=== PATIENT | male | born 1975 | race African-American/Black ===

== ENCOUNTER → 2021-10-07 | Outpatient (CLI) | payer BC ==
[2021-10-07 15:41] LABS: CLARITY URINE CLEAR (CLEAR); COLOR URINE YELLOW (YELLOW); HEMOGLOBIN. 12.7 g/dL (14.0-18.0); KETONES URINE NEGATIVE (NEGATIVE); LEUKOCYTE ESTERASE URINE TRACE (NEGATIVE); MEAN CORPUSCULAR HEMOGLOBIN 29.4 pg (28.0-32.0); MEAN CORPUSCULAR VOLUME 90.5 fL (80.0-94.0); MEAN PLATELET VOLUME 6.9 fl (7.4-10.4); NITRITE URINE NEGATIVE (NEGATIVE); OCCULT BLOOD URINE NEGATIVE (NEGATIVE); PH URINE 7.5 (4.5-8.0); PLATELET 300 x1000/uL (130-400); PROTEIN URINE NEGATIVE (NEGATIVE); RED BLOOD CELL COUNT 4.31 mill/uL (4.7-6.1); SPECIFIC GRAVITY URINE 1.019 (1.005-1.030); UROBILINOGEN URINE 0.2 E.U./dL (0.2-1.0)
[2021-10-07 16:04] LABS: CHLORIDE 107 mEq/L (98-107)
[2021-10-07 16:07] LABS: PLATELET ESTIMATE NORMAL
[2021-10-07 16:10] LABS: TOTAL IRON BINDING CAPACITY 377 ug/dL (250-450)
[2021-10-07 16:21] LABS: PROSTRATE SPECIFIC AG TOTAL 1.85 ng/mL (0.0-4.0)
== END | disposition home or self-care (01) ==
LOC: LAB 14:37
PROVIDERS: ATTEND Internal Medicine
DX: R53.83 Other fatigue (principal); G40.909 Epilepsy, unspecified, not intractable, without status epilepticus; R53.1 Weakness; E29.1 Testicular hypofunction; D64.9 Anemia, unspecified
CPT/HCPCS: 36415; 80053; 81003; 82728; 83036; 83540; 83550; 84153; 84403; 84443; 85025; 85651; G0103

== ENCOUNTER 2023-04-16 09:24 | Emergency (ER) | payer BC, OTHER ==
[~2023-04-16] VITALS: Ht 193 cm; Wt 71.0 kg
[2023-04-16] MEDS ORDERED: KETOROLAC 30MG/ML VIAL IV STA (09:55)
[2023-04-16] MEDS ORDERED: SODIUM CHLORIDE 0.9% 1,000 ML IV ONE (10:00)
[2023-04-16] MEDS ORDERED: METOCLOPRAMIDE HCL 10MG/2ML VIAL IV ONE (10:00)
[2023-04-16 10:11] LABS: BASOPHILS % 0.7 % (0.0-2.0); HEMATOCRIT. 39.8 % (42.0-52.0); HEMOGLOBIN. 13.2 g/dL (14.0-18.0); LYMPHOCYTES % 22.7 % (20.0-50.0); MEAN CORPUSCULAR HEMOGLOBIN 29.6 pg (28.0-32.0); MEAN CORPUSCULAR VOLUME 89.5 fL (80.0-94.0); MEAN PLATELET VOLUME 7.1 fl (7.4-10.4); MONOCYTES % 10.6 % (2.0-8.0); PLATELET 317 x1000/uL (130-400); RED BLOOD CELL COUNT 4.44 mill/uL (4.7-6.1); RED CELL DISTRIBUTION WIDTH 15.3 % (11.6-14.6)
[2023-04-16 10:18] LABS: CHLORIDE 106 mEq/L (98-107)
[2023-04-16 10:45] LABS: ETHANOL BLOOD < 10 mg/dL
[2023-04-16 10:48] LABS: CARBAMAZEPINE < 0.5 ug/mL (4-12)
[2023-04-16 12:08] VITALS: BP 101/63
== END 2023-04-16 12:14 | disposition home or self-care (01) ==
LOC: ER 09:24
DX: R51.9 Headache, unspecified (principal); R42 Dizziness and giddiness
CPT/HCPCS: 36415; 70450; 80053; 80156; 80165; 80320; 82962; 85025; 93005; 96360; 99285; J7030; Z7610; G0480